=== PATIENT | female | born 2000 | race Hispanic/Latino ===

== ENCOUNTER 2020-09-16 07:31 | Outpatient (CLI) | payer OTHER ==
--- NOTE | 2020-09-16 11:17 | MRI ---
MRI LEFT ANKLE: Date: 09/16/2020 PROVIDED CLINICAL HISTORY: Pain status post injury. FINDINGS: The anterior extensor, medial flexor, peroneal, and Achilles tendons demonstrate an intact MR appeara nce. The medial and lateral ankle ligaments appear intact. Regional marrow and muscular signal appear normal. Alignment appears anatomic. No regional joint effu tye is evident. There is preservation of the normal fat signal intensity within the tarsal sinus. The plantar aponeur osis appears normal. The courses of the regional major neurovascular structures appear unremarkable. IMPRESSION: No evidence for internal derangement. POS: [facility]
== END 2020-09-16 07:32 | disposition home or self-care (01) ==
LOC: BICMRI 07:31
PROVIDERS: ATTEND Family Medicine
DX: S93.492A Sprain of other ligament of left ankle, initial encounter (principal)